=== PATIENT | male | born 1960 | race Caucasian/White ===

== ENCOUNTER 2019-05-20 18:24 | Emergency (ER) | payer OTHER ==
[~2019-05-20] VITALS: Ht 180.3 cm; Wt 108.9 kg
[2019-05-20 19:34] LABS: BILIRUBIN,URINE NEGATIVE (NEGATIVE); CLARITY,URINE SL CLOUDY (CLEAR); COLOR,URINE YELLOW (YELLOW); KETONES,URINE NEGATIVE (NEGATIVE); LEUKOCYTE ESTERASE ,URINE NEGATIVE (NEGATIVE); NITRITE,URINE NEGATIVE (NEGATIVE); PROTEIN,URINE DIPSTICK NEGATIVE (NEGATIVE); URINE UROBILINOGEN 0.2 mg/dL (0.2 - 1)
[2019-05-20] MEDS ORDERED: KETOROLAC TROMETHAMINE 30 MG/ML VIAL IV STA (20:30)
[2019-05-20] MEDS ORDERED: SODIUM CHLORIDE 0.9% 1000ML 1,000 ML IV STA (20:30)
--- NOTE | 2019-05-20 22:02 | Diagnostic Imaging Report ---
EXAM: CT Abdomen and Pelvis WITHOUT contrast INDICATION: Kidney stones. Pain. COMPARISON: None. TECHNIQUE: Abdomen and pelvis were scanned utilizing a multidetector helical scanner from the lung base to the pubic symphysis without administration of IV contrast. Absence of intravenous contrast decreases sensitivity for detection of focal lesions and vascular pathology. Coronal and sagittal reformations were obtained. Routine protocol was performed. IV CONTRAST: None. ORAL CONTRAST: Water RADIATION DOSE: Total DLP: 820.87 mGy*cm Estimated effective dose: (DLP x 0.015 x size factor) mSv COMPLICATIONS: None FINDINGS: LINES and TUBES: None. LOWER THORAX: There is bibasilar atelectasis. HEPATOBILIARY: There is focal fatty infiltration adjacent to the falciform ligament. No focal hepatic lesions. No biliary ductal dilation. GALLBLADDER: There is a stone in the gallbladder neck. No wall thickening. SPLEEN: No splenomegaly. PANCREAS: No focal masses or ductal dilatation. ADRENALS: No adrenal nodules KIDNEYS/URETERS: 6 mm bilobed obstructing calculus in the right ureter resulting in mild right hydroureteronephrosis. No left hydronephrosis. No cystic or solid mass lesions. 2 mm calculus in the lower pole of the right kidney. Punctate calculus in the lower pole of the left kidney on image 73.. GI TRACT: No abnormal distention, wall thickening, or evidence of bowel obstruction. Appendix is normal. PELVIC ORGANS/BLADDER: Unremarkable. LYMPH NODES: No lymphadenopathy. VESSELS: Unremarkable. PERITONEUM / RETROPERITONEUM: No free air or fluid. Mildly increased density of the root of the mesentery fat BONES: Lower thoracic Schmorl nodes. Degenerative changes of the lumbar spine. Small bowel and scattered throughout the pelvic bones. SOFT TISSUES: Unremarkable. IMPRESSION: 1. 6 mm obstructing calculus in the mid to distal right ureter resulting in mild right hydroureteronephrosis. 2. Additional punctate renal calculi as detailed above. 3. Cholelithiasis. No biliary dilatation. Signed by: Dr. Zenon Hidalgo M.D. on 05/20/2019 9:59 PM
[2019-05-20 22:15] LABS: BASOPHILS % 0.5 % (0.0-1.0); EOSINOPHILS # (AUTO) 0.2 (0.0-0.4); EOSINOPHILS % 2.1 % (0.0-6.0); HEMATOCRIT 44.8 % (38.2-49.6); HEMOGLOBIN 15.1 g/dL (14.0-18.0); LYMPHOCYTES # (AUTO) 1.5 (1.0-3.2); LYMPHOCYTES % 17.6 % (18.0-39.1); MEAN CORPUSCULAR HEMOGLOBIN 30.3 pg (28-32); MEAN CORPUSCULAR HGB CONC 33.7 g/dL (31-35); MEAN CORPUSCULAR VOLUME 89.8 fL (81-99); MONOCYTES # (AUTO) 1.2 (0.2-0.8); MONOCYTES % 13.7 % (4.4-11.3); NEUTROPHILS # (AUTO) 5.7 (2.1-6.9); NEUTROPHILS % 65.8 % (38.7-80.0); PLATELET COUNT 221 x10e3/uL (140-360); RED BLOOD COUNT 4.99 x10e6/uL (4.3-5.7); RED CELL DISTRIBUTION WIDTH 12.9 % (11.7-14.4)
[2019-05-20 22:33] LABS: ALANINE AMINOTRANSFERASE 41 IU/L (0-55); ALBUMIN 3.6 g/dL (3.5-5.0); ALKALINE PHOSPHATASE 53 IU/L (40-150); BLOOD UREA NITROGEN 18 mg/dL (7-26); BUN/CREATININE RATIO 16 (6-25); CALCIUM 9.7 mg/dL (8.4-10.2); CARBON DIOXIDE 24 mmol/L (22-29); CHLORIDE 107 mmol/L (98-107); CREATININE, SERUM 1.15 mg/dL (0.72-1.25); EST GLOMERULAR FILTRATION RATE > 60 ML/MIN (60-); GLUCOSE 90 mg/dL (74-118); SODIUM 141 mmol/L (136-145)
== END 2019-05-20 23:15 | disposition home or self-care (01) ==
LOC: ER 18:24
DX: M54.5 Low back pain (principal); R10.9 Unspecified abdominal pain; N20.2 Calculus of kidney with calculus of ureter; K80.20 Calculus of gallbladder without cholecystitis without obstruction
CPT/HCPCS: 36415; 74176; 80053; 81001; 85025; 99284; J1885; J7030